=== PATIENT | female | born 1945 | race African-American/Black ===

== ENCOUNTER 2017-10-03 11:17 | Emergency (ER) | payer MEDICARE, OTHER ==
[2017-10-03 11:27] VITALS: TEMP 97.5
--- NOTE | 2017-10-03 13:32 | PDOC ---
History of Present Illness - General Chief Complaint: Lightheaded Stated Complaint: DIZZINESS Time Seen by Provider: 10/03/17 13:19 - History of Present Illness Initial Comments: 10/03/17 15:15 The patient is a 71 year old female with a history of HTN, DM who presents for evaluation forgetfullness, lightheadedness, and headache. The patient reports a several month history of increasing forgetfulness, however today began experiencing some lightheadedness, blurry vision and throbbing headache prompting her presentation to the ED for evaluation. She notes that she is no longer having a headache, but does have a slight lightheadedness sensation. She denies any gait disturbances, numbness, weakness, or incontinence. She denies fevers, chills, SOB, chest pain, abdominal pain, nausea, vomiting, or changes with urination or bowel movements. Past History - Past Medical History Allergies/Adverse Reactions: Allergies Allergy/AdvReac Type Severity Reaction Status Date / Time Penicillins Allergy Rash Verified 10/03/17 11:27 Home Medications: Ambulatory Orders NK [No Known Home Medication] 10/03/17 COPD: No Diabetes: Yes - Surgical History Cholecystectomy: Yes - Suicide/Smoking/Psychosocial Hx Smoking History: Never smoked Hx Alcohol Use: No Drug/Substance Use Hx: No Substance Use Type: None Review of Systems - Review of Systems Comments:: 10/03/17 15:19 Constitutional: No fevers, chills, fatigue, malaise HEENT: Blurry vision. No Rhinorrhea, nasal congestion, Cardiovascular: Lightheadedness. No chest pain, syncope, palpitations, Respiratory: No Cough, SOB, Hemoptysis, Gastrointestinal: No Abdominal pain, Nausea, Vomiting, Constipation, Diarrhea, Melena Genitourinary: No Dysuria, Frequency, Urgency, Hesitancy, Hematuria, Flank pain Musculoskeletal: No Myalgia, arthralgia Skin: No rashes, bruising, pallor Neurologic: Headache. No Dizziness, Numbness, Weakness, or Tingling Psychiatric: No Hallucinations. No SI or HI *Physical Exam - Vital Signs Last Vital Signs Temp Pulse Resp BP Pulse Ox 97.5 F L 76 20 144/72 100 10/03/17 11:23 10/03/17 11:23 10/03/17 11:23 10/03/17 11:23 10/03/17 11:23 - Physical Exam Comments: 10/03/17 15:19 General Appearance: Nourished. No Apparent Distress HEENT: EOMI, MACARENA. No Pharyngeal Erythema, Tonsillar Exudate, Tonsillar Erythema Neck: No Cervical Lymphadenopathy Respiratory/Chest: Lungs Clear, Normal Breath Sounds. No Crackles, Rales, Rhonchi, Wheezing Cardiovascular: Regular Rhythm, Regular Rate. No Murmur, Gallops, Rubs Gastrointestinal/Abdominal: Normal Bowel Sounds, Soft. No Guarding, Rebound, Tenderness Musculoskeletal: No CVA Tenderness Extremity: Normal Capillary Refill Integumentary: Normal Color, Dry, Warm Neurologic: gas jockey II-XII NML intact, Fully Oriented, Alert, Normal Mood/Affect, Normal Response, Motor Strength 5/5. Normal Finger to Nose and Heel to [facility] ED Treatment Course - LABORATORY CBC & Chemistry Diagram: 10/03/17 13:40 10/03/17 13:40 Medical Decision Making - Medical Decision Making 10/03/17 15:20 The patient is a 71 year old female with a history of HTN, DM who presents for evaluation forgetfullness, lightheadedness, and headache. Differential includes but is not limited to: Normopressure hydrocephalous, intracranial process, acs, infectious, metabolic derangement. Given the patient's resolution of symptoms here in the ED, it is likely her symptoms were due to a migrainous headache. It is likely her memory issues are age related as well. However we will obtain a cbc, cmp, troponin, ekg, ua, and head ct to evaluate for other etiologies. We will continue to monitor and reassess. 10/03/17 16:18 CBC, cmp, troponin, ekg, ua are unremarkable. Head ct does not demonstrate any acute pathology as read by our radiologist. We are comfortable discharging the patient home at this time with neurology and primary care provider follow up. We discussed the results and the plan with the patient and her family and they voiced understanding and is agreeable with the plan. *DC/Admit/Observation/Transfer Diagnosis at time of Disposition: Memory changes Headache Qualifiers: Headache type: unspecified Headache chronicity pattern: unspecified pattern Intractability: not intractable Qualified Code(s): R51 - Headache - Discharge Dispostion Disposition: HOME Condition at time of disposition: Improved Admit: No - Referrals Referrals: Farideh Hui [Primary Care Provider] - Mann Malloy MD [Staff Physician] - - Patient Instructions Printed Discharge Instructions: DI for Headache Additional Instructions: Please return to the ER if you experience worsening or concerning symptoms including worsening headache, fevers, difficulty breathing or chest pain. Your lab results were normal here in the ER. Your head imaging was unremarkable. We recommend that you follow up with a neurologist and we have provided a number you should call for Dr. Malloy. Please call to schedule a follow up appointment within 1 week. Please also call to schedule a follow up appointment with your primary care provider within 1 week to discuss further management of your symptoms. - Post Discharge Activity
[2017-10-03 13:56] LABS: BASO % 0.2 % (0-2.0); HEMATOCRIT 38.8 % (32.4-45.2); HEMOGLOBIN 12.5 GM/dL (10.7-15.3); LYMPH % 49.1 % (8-40); MCH 26.8 pg (25.7-33.7); MCHC 32.2 g/dl (32.0-36.0); MEAN CELL VOLUME 83.2 fl (80-96); MONO % 8.7 % (3.8-10.2); PLATELET COUNT 198 K/MM3 (134-434); RBC 4.66 M/mm3 (3.60-5.2); RDW 13.3 % (11.6-15.6); WHITE BLOOD COUNT 2.8 K/mm3 (4.0-10.0)
[2017-10-03 14:02] LABS: URINE APPEARANCE CLEAR; URINE BILIRUBIN NEGATIVE (NEGATIVE); URINE BLOOD NEGATIVE (NEGATIVE); URINE COLOR LTYELLOW; URINE GLUCOSE (UA) NEGATIVE (NEGATIVE); URINE KETONE NEGATIVE (NEGATIVE); URINE LEUK ESTERASE NEGATIVE (NEGATIVE); URINE NITRITE NEGATIVE (NEGATIVE); URINE PROTEIN NEGATIVE (NEGATIVE)
[2017-10-03 14:18] LABS: ALBUMIN 3.3 g/dl (3.4-5.0); ANION GAP 10 (8-16); BILIRUBIN,TOTAL 0.7 mg/dL (0.2-1.0); BLOOD UREA NITROGEN 14 mg/dL (7-18); CALCIUM 8.8 mg/dL (8.5-10.1); CHLORIDE 107 mmol/L (98-107); CO2 26 mmol/L (21-32); CREATININE 0.7 mg/dL (0.55-1.02); GLUCOSE,RANDOM 154 mg/dL (74-106); POTASSIUM 3.8 mmol/L (3.5-5.1); SGOT/AST 17 U/L (15-37); SGPT/ALT 17 U/L (12-78); SODIUM 143 mmol/L (136-145); TOT PROT 7.2 g/dl (6.4-8.2)
[2017-10-03 14:20] LABS: ALK PHOS 95 U/L (45-117)
--- NOTE | 2017-10-03 15:07 | EKG ---
Test Reason : Blood Pressure : / mmHG Vent. Rate : 068 BPM Atrial Rate : 068 BPM P-R Int : 152 ms QRS Dur : 070 ms QT Int : 384 ms P-R-T Axes : 069 -02 039 degrees QTc Int : 408 ms NORMAL SINUS RHYTHM POSSIBLE LEFT ATRIAL ENLARGEMENT SEPTAL INFARCT (CITED ON OR BEFORE 07-JAN-2008) ABNORMAL ECG WHEN COMPARED WITH ECG OF 07-JAN-2008 23:21, NO SIGNIFICANT CHANGE WAS FOUND Confirmed by CASSANDRA HAGEN MD ([id number]) on 10/03/2017 3:07:24 PM Referred By: Confirmed By:CASSANDRA HAGEN MD
--- NOTE | 2017-10-03 16:16 | PDOC ---
Attending Attestation - Resident Resident Name: Jovanny Ellis - ED Attending Attestation I have performed the following: I have examined & evaluated the patient, The case was reviewed & discussed with the resident, I agree w/resident's findings & plan, Exceptions are as noted - HPI HPI: 10/03/17 16:11 "The patient is a 71 year old female, with a significant past medical history of hypertension and diabetes, who presents to the emergency department accompanied by son complaining of worsening memory and lightheadedness over the past several months. Pt reports a "foggy" feeling in her head and has difficulty concentrating. She denies any weakness/numbnee/tingling. Denies any significant KLEIN. No N/V. Denies dizziness but states that she feels occasionally lightheaded. Denies any lightheadedness at this time. Denies CP/SOB/ palpitations. Denies any changes in gait. Denies fever, chills, or cough. She denies any chest pain, shortness of breath, diaphoresis, or palpitations. She denies any abdominal pain, nausea, vomiting, diarrhea, or constipation. She denies any dysuria, hematuria, frequency, urgency, or urinary incontinence. She denies any recent travel or sick contacts. Allergies: Penicillins Past Surgical History: None reported. Social History: Non smoker. No ETOH or recreational drug use. PCP: Dr. Hui " - Physicial Exam PE: 10/03/17 16:21 "GENERAL: Awake, alert, and fully oriented, in no acute distress HEAD: No signs of trauma EYES: PERRLA, EOMI, sclera anicteric, conjunctiva clear ENT: Auricles normal inspection, hearing grossly normal, nares patent, oropharynx clear without exudates. Moist mucosa NECK: Nontender, no stepoffs, Normal ROM, supple, no lymphadenopathy, JVD, or masses LUNGS: Breath sounds equal, clear to auscultation bilaterally. No wheezes, and no crackles HEART: Regular rate and rhythm, normal S1 and S2, no murmurs, rubs or gallops ABDOMEN: Soft, nontender, normoactive bowel sounds. No guarding, no rebound. No masses EXTREMITIES: Normal range of motion, no edema. No clubbing or cyanosis. No cords, erythema, or tenderness NEUROLOGICAL: Cranial nerves II through XII intact. 5/5 strength and sensation in all extremities, Normal speech, normal gait, normal cerebellar tests SKIN: Warm, Dry, normal turgor, no rashes or lesions noted. " - Medical Decision Making 10/03/17 16:22 71 F with worsening memory and intermittent lightheadedness x months. No acute complaints today. Pt with non-focal neuro exam, no s/s acute stroke. Consider NPH given pt's age and nonspecific complaints. Also consider metabolic derangement or infectious process. ACS unlikely as pt denies any CP/SOB. - Labs, UA - CTH 10/03/17 16:25 Labs, UA and CT unremarkable. Pt ambulatory with steady gait, no complaints at this time. Vitals stable. Pt clinically stable for DC. WIll give neuro f/u for further evaluation of pt's memory impairment.
[2017-10-03 16:29] VITALS: BP 129/71; PULSE 68
== END 2017-10-03 16:29 | disposition home or self-care (01) ==
LOC: JER 11:17
DX: R41.3 Other amnesia (principal); R51 Headache; I10 Essential (primary) hypertension; E11.9 Type 2 diabetes mellitus without complications
CPT/HCPCS: 36415; 70450-TC; 80053; 81003; 82550; 84484; 85025; 93005; 93010; 99282-25

== ENCOUNTER 2017-10-23 09:05 | Emergency (ER) | payer MEDICARE ==
[2017-10-23 09:26] VITALS: TEMP 97.6; BMI 34.3
[2017-10-23] MEDS ORDERED: MECLIZINE HCL 25 MG TABLET (FP) PO ONE (09:56)
[2017-10-23] MEDS ORDERED: SODIUM CHLORIDE 1,000 ML IV STA (09:56)
[2017-10-23] MEDS ORDERED: MECLIZINE HCL 25 MG TABLET (FP) ONE (10:11)
[2017-10-23] MEDS ORDERED: SODIUM CHLORIDE 500 ML IV STA (10:17)
--- NOTE | 2017-10-23 10:17 | PDOC ---
History of Present Illness - General History Source: Patient Exam Limitations: No Limitations - History of Present Illness Initial Comments: CHIEF COMPLAINT: 71 y/o afebrile female with PMH HTN, DM, vertigo (not being treated for any) c/o dizziness this morning. HISTORY OF PRESENT ILLNESS: The patient states she woke up around 6:30 and couldn't move. Eventually she was able to get up and states she felt very dizzy , like the room was spinning around her, and also admits to stuttering her speech. She states she still feels very dizzy. She denies fever, chills, KLEIN, changes in vision/hearing, n/v/d, CP, SOB, abd pain. Vital signs on arrival are notable for BP of 180/80. REVIEW OF SYSTEMS: GENERAL/CONSTITUTIONAL: No fever/chills. No weakness. No weight change. HEAD, EYES, EARS, NOSE AND THROAT: No change in vision. No ear pain or discharge. No sore throat. CARDIOVASCULAR: No chest pain or shortness of breath. RESPIRATORY: No cough, wheezing, or hemoptysis. GASTROINTESTINAL: No abd pain, nausea, vomiting, diarrhea. GENITOURINARY: No dysuria, frequency, or change in urination. MUSCULOSKELETAL: No joint or muscle swelling or pain. No neck or back pain. SKIN: No rash or easy bruising. NEUROLOGIC: +vertigo, stuttered speech. No headache, loss of consciousness, or loss of sensation. PHYSICAL EXAM: GENERAL: The patient is awake, alert, and fully oriented, in no acute distress. She is well appearing and pleasant. HEAD: Normal with no signs of trauma. ENT: Pupils equal, round and reactive to light, extraocular movements intact, sclera anicteric, conjunctiva clear. No nystagmus b/l. LUNGS: Clear to auscultation bilaterally. Normal excursion. No respiratory distress or use of accessory muscles. CV: RRR, S1/S2, no MRG. Cap refill < 2 sec. ABDOMEN: Soft, non-distended, non-tender even to deep palpation, no hepatomegaly or splenomegaly, no masses. EXTREMITIES: Normal range of motion, no edema. NEUROLOGICAL: Normal speech. Gait not assessed. CN II-XII grossly intact. No facial drooping. No weakness. Normal finger to nose. SKIN: Warm, dry, normal turgor, no rashes or lesions noted. <Carlita Lane - Last Filed: 10/23/17 14:39> <Tay Scales - Last Filed: 10/25/17 08:33> - General Chief Complaint: Lightheaded Stated Complaint: Weakness Time Seen by Provider: 10/23/17 09:26 NIH Stroke Scale - Last Known Well Date/Time & Onset Date Last Known Well: 10/22/17 Time Last Known Well: 22:00 - Initial Evaluation Level of consciousness: Alert Ask patient the month and their age: Answers both correctly Ask patient to open & close eyes; make fist and let go: Obeys both correctly Best gaze (horizontal eye movement): Normal Visual field testing: No visual field loss Facial paresis (Show teeth/raise eyebrows/close eyes tight): Normal symmetrical movement Motor Function: Left Arm: Normal Motor Function: Right Arm: Normal (extends arm 90 (or 45) degrees for 10 seconds without drift Motor Function: Left Leg: Normal (extends leg 30 degrees for 5 seconds without drift) Motor Function: Right Leg: Normal (extends leg 30 degrees for 5 seconds without drift) Limb Ataxia: No ataxia Sensory(Use pinprick test arms,legs,trunk,face/side to side): Normal Best language (Describe picture, name items, read sentences): No Aphasia Dysarthria (read several words): Normal articulation Extinction and Inattention: No abnormality - Total Score NIH Stroke Scale Score: 0 <Carlita Lane - Last Filed: 10/23/17 14:39> Past History - Past Medical History COPD: No Diabetes: Yes - Surgical History Cholecystectomy: Yes - Suicide/Smoking/Psychosocial Hx Smoking History: Never smoked Hx Alcohol Use: No Drug/Substance Use Hx: No Substance Use Type: None <Carlita Lane - Last Filed: 10/23/17 14:39> <Tay Scales - Last Filed: 10/25/17 08:33> - Past Medical History Allergies/Adverse Reactions: Allergies Allergy/AdvReac Type Severity Reaction Status Date / Time Penicillins Allergy Rash Verified 10/23/17 09:19 Home Medications: Ambulatory Orders Meclizine HCl [Antivert -] 25 mg PO TID #21 tablet 10/23/17 *Physical Exam - Vital Signs Last Vital Signs Temp Pulse Resp BP Pulse Ox 97.6 F 100 H 18 188/80 100 10/23/17 09:23 10/23/17 09:28 10/23/17 09:23 10/23/17 09:28 10/23/17 09:23 <Carlita [address] - Last Filed: 10/23/17 14:39> - Vital Signs Last Vital Signs Temp Pulse Resp BP Pulse Ox 97.6 F 100 H 18 188/80 100 10/23/17 09:23 10/23/17 09:28 10/23/17 09:23 10/23/17 09:28 10/23/17 09:23 <Tay Scales - Last Filed: 10/25/17 08:33> Heart Score/ECG Review - ECG Impressions Comment:: 10/23/17 10:42 Twelve-lead EKG was performed and reviewed by me. There is normal sinus rhythm with a normal rate. rate of 78 abnormal r wave progression <Tay Scales - Last Filed: 10/25/17 08:33> ED Treatment Course - LABORATORY CBC & Chemistry Diagram: 10/23/17 10:15 10/23/17 10:15 - RADIOLOGY Radiology Studies Ordered: Category Date Time Status HEAD CT WITHOUT CONTRAST [CT] Stat CT Scan 10/23/17 09:56 Ordered <Carlita Lane - Last Filed: 10/23/17 14:39> - LABORATORY CBC & Chemistry Diagram: 10/23/17 10:15 10/23/17 10:15 - ADDITIONAL ORDERS Additional order review: 10/23/17 10:15 RBC 4.50 MCV 82.7 MCHC 33.0 RDW 14.0 MPV 9.3 Neutrophils % 59.8 D Lymphocytes % 31.6 D Monocytes % 7.7 Eosinophils % 0.4 D Basophils % 0.5 - Medications Given in the ED: ED Medications Discontinued Medications Generic Name Dose Route Start Last Admin Trade Name Freq PRN Reason Stop Dose Admin Sodium Chloride 1,000 mls @ 1,000 mls/hr 10/23/17 09:56 10/23/17 10:39 Normal Saline - IV 10/23/17 10:55 Not Given ASDIR STA Meclizine HCl 50 mg 10/23/17 09:56 01/30/18 10:39 Antivert - PO 10/23/17 09:57 50 mg ONCE ONE Administration <Tay Scales - Last Filed: 10/25/17 08:33> Medical Decision Making - Medical Decision Making A/P: 71 y/o female with symptoms of vertigo. However, also concerned for TIA/ CVA. last known well last evening before bed therefore will not call a [place]. plan is as follows: 1. EKG 2. Labs 3. CT head 4. PO meclizine 5. 500mL NS Head CT IMPRESSION: No significant interval change or acute intracranial pathology is identified. Labs unremarkable. The patient states she still has some head pressure and dizziness. Will give PO metoprolol and IV tylenol. The patient was also give food. Patient waiting for social work consult. Patient seen by social work and cleared for discharge with adult protective services information. The patient states she now feels much better and is walking to the bathroom on her own without dizziness. Will d/c to home with dx of vertigo and rx for meclizine. Strongly encouraged her to follow up with her PCP to restart her BP medication. Pt instructed to return to the ER with any worsening or concerning symptoms. <Carlita Lane - Last Filed: 10/23/17 14:39> - Medical Decision Making The patient was seen and evaluated in conjunction with PALLAVI Lane under my direct supervision, ancillary studies were reviewed. I agree with the plan as outlined by PALLAVI Lane . <Tay Scales - Last Filed: 10/25/17 08:33> *DC/Admit/Observation/Transfer <Carlita Lane - Last Filed: 10/23/17 14:39> <Tay Scales - Last Filed: 10/25/17 08:33> Diagnosis at time of Disposition: Vertigo - Discharge Dispostion Disposition: HOME Condition at time of disposition: Improved - Prescriptions Prescriptions: Meclizine HCl [Antivert -] 25 mg PO TID #21 tablet - Referrals Referrals: ON STAFF,NOT [Primary Care Provider] - José Miguel Tapia MD [Staff Physician] - Call tomorrow - Patient Instructions Printed Discharge Instructions: DI for Vertigo Additional Instructions: Discharge Instructions: -A prescription for Meclizine was sent to your pharmacy; please take if needed -Please follow up with your doctor or Dr. Tapia as soon as possible to restart your blood pressure medication -Return to the ER immediately with any worsening or concerning symptoms. - Post Discharge Activity Forms/Work/School Notes: Parent(s) Back to Work Note
[2017-10-23 10:33] LABS: BASO % 0.5 % (0-2.0); EOS % 0.4 % (0-4.5); HEMATOCRIT 37.2 % (32.4-45.2); HEMOGLOBIN 12.3 GM/dL (10.7-15.3); LYMPH % 31.6 % (8-40); MCH 27.3 pg (25.7-33.7); MEAN CELL VOLUME 82.7 fl (80-96); MEAN PLT VOLUME 9.3 fl (7.5-11.1); MONO % 7.7 % (3.8-10.2); NEUT % 59.8 % (42.8-82.8); PLATELET COUNT 225 K/MM3 (134-434); WHITE BLOOD COUNT 4.1 K/mm3 (4.0-10.0)
[2017-10-23 10:44] LABS: INR 1.1 (0.82-1.09); PROTHROMBIN TIME (PATIENT) 12.4 SEC (9.98-11.88)
[2017-10-23 10:48] LABS: ALBUMIN 3.3 g/dl (3.4-5.0); ANION GAP 7 (8-16); BLOOD UREA NITROGEN 14 mg/dL (7-18); CALCIUM 8.5 mg/dL (8.5-10.1); CHLORIDE 110 mmol/L (98-107); CO2 26 mmol/L (21-32); CREATININE 0.7 mg/dL (0.55-1.02); GLUCOSE,RANDOM 173 mg/dL (74-106); SGPT/ALT 14 U/L (12-78); SODIUM 143 mmol/L (136-145)
[2017-10-23 10:50] LABS: ALK PHOS 138 U/L (45-117); TOT PROT 6.8 g/dl (6.4-8.2)
[2017-10-23 10:57] LABS: POTASSIUM 4.1 mmol/L (3.5-5.1); SGOT/AST 14 U/L (15-37)
[2017-10-23 11:01] LABS: URINE APPEARANCE CLEAR; URINE BILIRUBIN NEGATIVE (NEGATIVE); URINE BLOOD NEGATIVE (NEGATIVE); URINE COLOR COLORLESS; URINE GLUCOSE (UA) NEGATIVE (NEGATIVE); URINE KETONE NEGATIVE (NEGATIVE); URINE LEUK ESTERASE NEGATIVE (NEGATIVE); URINE NITRITE NEGATIVE (NEGATIVE); URINE PROTEIN NEGATIVE (NEGATIVE); URINE UROBILINOGEN NEGATIVE mg/dL (0.2-1.0)
[2017-10-23] MEDS ORDERED: ACETAMINOPHEN 1000 MG/100 ML VIAL (NON FORMULARY) IVPB ONE (12:38)
[2017-10-23] MEDS ORDERED: METOPROLOL TARTRATE 25 MG TABLET (FP) PO ONE (12:38)
[2017-10-23] MEDS ORDERED: METOPROLOL TARTRATE 25 MG TABLET (FP) ONE (13:21)
[2017-10-23] MEDS ORDERED: ACETAMINOPHEN INJECTION 100 ML IVPB ONE (13:24)
[2017-10-23 13:56] VITALS: BP 144/77; PULSE 79
== END 2017-10-23 15:19 | disposition home or self-care (01) ==
LOC: JER 09:05
PROC: 3E0337Z Introduction of Electrolytic and Water Balance Substance into Peripheral Vein, Percutaneous Approach (ICD-10-PCS; principal; 2017-10-23)
PROC: 3E033NZ Introduction of Analgesics, Hypnotics, Sedatives into Peripheral Vein, Percutaneous Approach (ICD-10-PCS; 2017-10-23)
DX: R42 Dizziness and giddiness (principal); I10 Essential (primary) hypertension; E11.9 Type 2 diabetes mellitus without complications
CPT/HCPCS: 36415; 70450-TC; 80053; 81003; 85025; 85610; 96361; 96374; 99283-25

== ENCOUNTER 2021-04-14 10:43 | Emergency (ER) | payer OTHER ==
[2021-04-14 11:28] VITALS: TEMP 98.7; BMI 22.7
[2021-04-14] MEDS ORDERED: ACETAMINOPHEN 500 MG TABLET (FP) PO PRN (13:04)
[2021-04-14] MEDS ORDERED: ACETAMINOPHEN 325 MG TABLET (FP) ONE (13:11)
[2021-04-14 15:24] VITALS: BP 152/87; PULSE 73
== END 2021-04-14 15:26 | disposition home or self-care (01) ==
LOC: JER 10:43
DX: F03.91 Unspecified dementia, unspecified severity, with behavioral disturbance (principal)
CPT/HCPCS: 70450-TC; 71045-TC-FY; 72125-TC; 73030-TC-LT-FY; 82962; 99284-25